=== PATIENT | female | born 1985 | race Caucasian/White ===

== ENCOUNTER 2016-09-18 19:15 | Emergency (ER) | payer SELFPAY ==
[~2016-09-18] VITALS: Ht 165.1 cm; Wt 59.1 kg
[~2016-09-18 19:15] MED LIST: CLEOCIN300 MG PO; Colace PO; Feosol PO; IBUPROFEN800 MG PO; Motrin PO; NO HOME MEDS; NOHOMEMEDS; PREVACID30 MG PO; Percocet 5/325,Endoc PO; Silvadene,SSD,Therma TP; Vibramycin, Doryx PO
[2016-09-18 19:36] VITALS: BP 132/95
== END 2016-09-18 21:27 ==
LOC: EME 19:15
DX: F10.129 Alcohol abuse with intoxication, unspecified (principal)
CPT/HCPCS: 99281; 99283

== ENCOUNTER 2016-11-11 01:38 | Observation (INO) | payer SELFPAY ==
[~2016-11-11] VITALS: Ht 165.1 cm; Wt 65.5 kg
[2016-11-11 02:18] LABS: HEMATOCRIT 40.5 % (36.0-46.0); MCH 30.2 PG (29.0-34.0); MCHC 33.1 G/DL (30.0-36.0); MCV 91.4 FL (83-99); MEAN PLAT.VOLUME 8.6 uM^3 (9.5-12.4); PLATELET COUNT 301 K/uL (156-360); RBC DIS.WIDTH-CV 13.2 % (11.8-14.6); RBC DIS.WIDTH-SD 45.1 % (39-53); RED BLOOD COUNT 4.43 M/uL (3.80-5.20); WHITE BLOOD COUNT 7.7 K/uL (4.1-10.2)
[2016-11-11 02:26] LABS: CHLORIDE 102 mEq/L (99-109); POTASSIUM 2.6 mEq/L (3.7-5.4); SODIUM 138 mEq/L (136-147)
[2016-11-11 02:28] LABS: GLUCOSE 125 mg/dL (70-99)
[2016-11-11 02:29] LABS: ANION GAP 11 MEQ/L (2-14)
[2016-11-11 02:30] LABS: TOTAL BILIRUBIN 0.5 mg/dL (0.0-1.0)
[2016-11-11 02:31] LABS: ALKALINE PHOSPHATASE 51 IU/L (3-129)
[2016-11-11 02:32] LABS: GFR ESTIMATE (CALCULATED) > 59 mL/min/
[2016-11-11 02:33] LABS: UREA NITROGEN (BUN) 16 mg/dL (9-23)
[2016-11-11 02:35] LABS: LIPASE 36 U/L (1.0-51.0)
[2016-11-11 02:38] LABS: TROP-I INTERPRETATION NEGATIVE; TROPONIN-I < 0.01 ng/mL (0.0-0.30)
[2016-11-11 02:44] LABS: D-DIMER ELISA 0.57 mg/L FEU (< 0.57)
[2016-11-11 02:48] LABS: SERUM ETHYL ALCOHOL 11 mg/dL
[2016-11-11 02:56] LABS: QUANTITATIVE HCG < 4.0 MIU/ML
[2016-11-11 03:07] LABS: AMPHETAMINE NEGATIVE (500 ng/mL); BARBITURATES NEGATIVE (200 ng/mL); BENZODIAZEPINES PRESUMPTIVE POSITIVE (150 ng/mL); COCAINE PRESUMPTIVE POSITIVE (150 ng/mL); INTERNAL CONTROLS VALID? YES; METHADONE NEGATIVE (200 ng/mL); METHAMPHETAMINE NEGATIVE (500 ng/mL); OPIATES (MORPHINE) NEGATIVE (100 ng/mL); OXYCODONE NEGATIVE (100 ng/mL); PHENCYCLIDINE NEGATIVE (25 ng/mL); PROPOXYPHENE NEGATIVE (300 ng/mL); THC CANNABINOIDS NEGATIVE (50 ng/mL); TRICYCLIC ANTIDEPRESSANTS NEGATIVE (300 ng/mL)
[2016-11-11 03:08] LABS: ADD MEDTOX COMMENT Y
[2016-11-11 03:45] LABS: BENZODIAZEPINES QUANT VALUE 0 NG/ML; BENZODIAZEPINES, URINE SCREEN Negative (200 ng/mL)
[2016-11-11 04:19] LABS: MAGNESIUM 1.7 mg/dL (1.3-2.7)
[2016-11-11 04:34] VITALS: BP 120/68
[2016-11-11 07:55] VITALS: BP 123/88
[2016-11-11 10:54] LABS: ANION GAP 6 MEQ/L (2-14); CHLORIDE 105 MEQ/L (99-109); MAGNESIUM 1.6 mg/dl (1.3-2.7); SAMPLE HEMOLYSIS CHECK 0; SAMPLE ICTERIC CHECK 0; SAMPLE LIPEMIA CHECK 0; SODIUM 135 MEQ/L (136-147)
[2016-11-11 10:59] LABS: POTASSIUM 3.9 MEQ/L (3.7-5.4)
[2016-11-11 11:00] LABS: GFR ESTIMATE (CALCULATED) > 59 mL/min/; HDL CHOLESTEROL 85 MG/DL (Desirable>=50); LDL CHOLESTEROL 62 mg/dL (Desirable<100); NON-HDL CHOLESTEROL 69 mg/dL (Desirable<160); TOTAL CHOLESTEROL 154 mg/dL (Desirable<200); TRIGLYCERIDES 37 MG/DL (Normal: <150); UREA NITROGEN (BUN) 11 mg/dL (9-23)
[2016-11-11 11:02] LABS: GLUCOSE 82 mg/dL (70-99)
[2016-11-11 11:03] LABS: TROP-I INTERPRETATION NEGATIVE; TROPONIN-I < 0.01 ng/mL (0.0-0.30)
[2016-11-11 12:05] VITALS: BP 110/64
[2016-11-11 15:33] VITALS: BP 101/58
[2016-11-11 15:59] LABS: TROP-I INTERPRETATION NEGATIVE; TROPONIN-I < 0.01 ng/mL (0.0-0.30)
[2016-11-11 20:06] VITALS: BP 105/72
== END 2016-11-11 23:26 | disposition home or self-care (01) ==
LOC: EME 01:38 → EDOF 03:21 → 5WEST 04:30
PROVIDERS: Emergency Medicine; Physician Assistant Medical
DX: R07.89 Other chest pain (principal); E87.6 Hypokalemia; R00.2 Palpitations; R06.00 Dyspnea, unspecified; F14.10 Cocaine abuse, uncomplicated; F10.120 Alcohol abuse with intoxication, uncomplicated; F15.10 Other stimulant abuse, uncomplicated; F11.21 Opioid dependence, in remission; F41.9 Anxiety disorder, unspecified; F32.9 Major depressive disorder, single episode, unspecified; Z86.19 Personal history of other infectious and parasitic diseases; R06.4 Hyperventilation; E83.42 Hypomagnesemia
CPT/HCPCS: 71020; 80048 91; 80053; 80061; 83690; 83735; 84484; 84702; 84999; 85027; 85379; 93005; 99281; 99285; G0378; G0480; J2060; J2405; J3411; J3475; J3480; J7030; S0028

== ENCOUNTER 2017-01-07 22:31 | Emergency (ER) | payer SELFPAY ==
[~2017-01-07] VITALS: Ht 165.1 cm; Wt 58.1 kg
[2017-01-07 23:52] LABS: INTERNAL CONTROL VALID? YES
[2017-01-07 23:53] LABS: ADD MIUA? YES; BILIRUBIN NEGATIVE; BLOOD LARGE; COLOR YELLOW ((YELLOW)); GLUCOSE (STRIP) NEGATIVE; KETONES NEGATIVE; LEUKOCYTES TRACE; NITRITE NEGATIVE; PROTEIN (STRIP) 30; SPECIFIC GRAVITY 1.019 (1.000-1.030); UROBILINOGEN 0.2 MG/DL (0.2-1.0)
[2017-01-08 00:30] LABS: EPITHELIAL CELLS 1+ /HPF; MUCUS RARE /LPF; RED BLOOD CELLS 30-40 /HPF (0-5)
[2017-01-08 00:31] LABS: AMORPHOUS PHOSPHATE CRYSTALS 1+; BACTERIA 1+ /HPF; CASTS NONE SEEN /LPF; CRYSTALS PRESENT; UCUL ADDED? NO
[2017-01-08 01:15] VITALS: BP 147/107
[2017-01-10 16:42] LABS: CHLAMYDIA TRACHOMATIS POSITIVE; NEISSERIA GONORRHOEAE NEGATIVE
== END 2017-01-08 01:29 | disposition home or self-care (01) ==
LOC: EME 22:31
PROVIDERS: Physician Assistant
DX: N93.8 Other specified abnormal uterine and vaginal bleeding (principal); F17.200 Nicotine dependence, unspecified, uncomplicated
CPT/HCPCS: 76856; 81003; 84703; 87210; 87480; 87491; 87510; 87591; 87660; 99281; 99284; J0696

== ENCOUNTER 2017-07-14 11:07 | Emergency (ER) | payer SELFPAY ==
[~2017-07-14] VITALS: Ht 165.1 cm; Wt 55.6 kg
[2017-07-14 12:35] LABS: BASOPHIL COUNT 0.1 K/uL (0-0.1); EOSINOPHIL (%) 0.4 % (0-5); HEMATOCRIT 40.7 % (36.0-46.0); IMMATURE GRANULOCYTE (%) 0.1 % (0.0-0.7); LYMPHOCYTE (%) 27.7 % (15-42); LYMPHOCYTE COUNT 1.9 K/uL (1.0-2.8); MCH 31.5 PG (29.0-34.0); MCHC 34.4 G/DL (30.0-36.0); MCV 91.7 FL (83-99); MONOCYTE (%) 9.2 % (3-12); MONOCYTE COUNT 0.6 K/uL (0-0.8); NEUTROPHIL (%) 61.6 % (45-76); NEUTROPHIL COUNT 4.2 K/uL (1.8-6.4); PLATELET COUNT 355 K/uL (156-360); RBC DIS.WIDTH-CV 12.4 % (11.8-14.6); RBC DIS.WIDTH-SD 41.6 % (39-53); RED BLOOD COUNT 4.44 M/uL (3.80-5.20); WHITE BLOOD COUNT 6.8 K/uL (4.1-10.2)
[2017-07-14 12:48] LABS: CHLORIDE 106 mEq/L (99-109); POTASSIUM 3.9 mEq/L (3.7-5.4); SODIUM 137 mEq/L (136-147)
[2017-07-14 12:50] LABS: GLUCOSE 80 mg/dL (70-99)
[2017-07-14 12:54] LABS: CREATININE 0.8 mg/dL (0.6-1.3); GFR ESTIMATE (CALCULATED) > 59 mL/min/
[2017-07-14 12:55] LABS: UREA NITROGEN (BUN) 18 mg/dL (9-23)
[2017-07-14 12:58] LABS: TROP-I INTERPRETATION NEGATIVE; TROPONIN-I 0.02 ng/mL (0.0-0.30)
[2017-07-14 13:01] LABS: PTT 31.4 SEC (25-37)
[2017-07-14 15:34] LABS: TROP-I INTERPRETATION NEGATIVE; TROPONIN-I < 0.01 ng/mL (0.0-0.30)
[2017-07-14 16:30] VITALS: BP 122/88
== END 2017-07-14 19:16 | disposition left against medical advice (07) ==
LOC: EME 11:07
PROVIDERS: Emergency Medicine
DX: R07.89 Other chest pain (principal); F14.10 Cocaine abuse, uncomplicated; B19.20 Unspecified viral hepatitis C without hepatic coma; J45.909 Unspecified asthma, uncomplicated; F41.9 Anxiety disorder, unspecified; F17.200 Nicotine dependence, unspecified, uncomplicated
CPT/HCPCS: 71045; 80048; 84484; 85025; 85610; 85730; 93005

== ENCOUNTER 2017-10-01 22:43 | Emergency (ER) | payer SELFPAY ==
[~2017-10-01] VITALS: Ht 165.1 cm; Wt 61.8 kg
[2017-10-01 23:00] VITALS: BP 115/73
[2017-10-01 23:51] LABS: HEMOGLOBIN 11.9 G/DL (11.9-15.5); MCV 94.1 FL (83-99); PLATELET COUNT 222 K/uL (156-360); RBC DIS.WIDTH-CV 12.3 % (11.8-14.6); RBC DIS.WIDTH-SD 42.5 % (39-53); RED BLOOD COUNT 3.72 M/uL (3.80-5.20); WHITE BLOOD COUNT 6.1 K/uL (4.1-10.2)
[2017-10-02 00:05] LABS: APPEARANCE CLOUDY ((CLEAR)); BILIRUBIN NEGATIVE; BLOOD NEGATIVE; COLOR YELLOW ((YELLOW)); GLUCOSE (STRIP) NEGATIVE; KETONES NEGATIVE; LEUKOCYTES MODERATE; NITRITE NEGATIVE; PROTEIN (STRIP) 30; SPECIFIC GRAVITY 1.023 (1.000-1.030); UROBILINOGEN 0.2 MG/DL (0.2-1.0)
[2017-10-02 00:15] LABS: ALBUMIN 3.5 g/dL (3.2-4.8); CHLORIDE 107 mEq/L (99-109); POTASSIUM 4.2 mEq/L (3.7-5.4); SODIUM 139 mEq/L (136-147)
[2017-10-02 00:17] LABS: GLUCOSE 64 mg/dL (70-99)
[2017-10-02 00:18] LABS: TOTAL PROTEIN 6.7 g/dL (6.4-8.3)
[2017-10-02 00:19] LABS: TOTAL BILIRUBIN 0.1 mg/dL (0.0-1.0)
[2017-10-02 00:21] LABS: BACTERIA 1+ /HPF; EPITHELIAL CELLS 3+ /HPF; MUCUS NONE SEEN /LPF; RED BLOOD CELLS 0-5 /HPF (0-5); UCUL ADDED? YES
[2017-10-02 00:21] LABS: ALKALINE PHOSPHATASE 38 IU/L (3-129); CREATININE 0.7 mg/dL (0.6-1.3); GFR ESTIMATE (CALCULATED) > 59 mL/min/
[2017-10-02 00:22] LABS: UREA NITROGEN (BUN) 10 mg/dL (9-23)
[2017-10-02 00:23] LABS: AST (GOT) 31 IU/L (2-34)
[2017-10-02 00:24] LABS: ALT (GPT) 29 IU/L (3-49); LIPASE 39 U/L (1.0-51.0)
[2017-10-02] MEDS ORDERED: ZOFRAN ODT4 MG PO (02:50)
[2017-10-02] MEDS ORDERED: KEFLEX500 MG PO (02:58)
== END 2017-10-02 03:47 | disposition home or self-care (01) ==
LOC: EME 22:43
DX: O23.41 Unspecified infection of urinary tract in pregnancy, first trimester (principal); F19.10 Other psychoactive substance abuse, uncomplicated; Z3A.11 11 weeks gestation of pregnancy; O98.411 Viral hepatitis complicating pregnancy, first trimester; B19.20 Unspecified viral hepatitis C without hepatic coma; O99.511 Diseases of the respiratory system complicating pregnancy, first trimester; J45.909 Unspecified asthma, uncomplicated; O99.341 Other mental disorders complicating pregnancy, first trimester; F41.9 Anxiety disorder, unspecified; O99.331 Smoking (tobacco) complicating pregnancy, first trimester; F17.200 Nicotine dependence, unspecified, uncomplicated
CPT/HCPCS: 76801; 80053; 81003; 83690; 84702; 85027; 87086; 99281; 99284

== ENCOUNTER 2018-01-31 18:35 | Emergency (ER) | payer OTHER ==
[~2018-01-31] VITALS: Ht 165.1 cm; Wt 69.4 kg
[~2018-01-31 18:35] MED LIST changes: +KEFLEX500 MG PO; +ZOFRAN ODT4 MG PO
[2018-01-31 20:51] VITALS: BP 125/75
== END 2018-01-31 20:52 | disposition home or self-care (01) ==
LOC: EME 18:35
DX: Z04.3 Encounter for examination and observation following other accident (principal); O99.322 Drug use complicating pregnancy, second trimester; F11.20 Opioid dependence, uncomplicated; O99.513 Diseases of the respiratory system complicating pregnancy, third trimester; J45.909 Unspecified asthma, uncomplicated; O99.343 Other mental disorders complicating pregnancy, third trimester; F41.9 Anxiety disorder, unspecified; O98.413 Viral hepatitis complicating pregnancy, third trimester; B19.20 Unspecified viral hepatitis C without hepatic coma; O99.333 Smoking (tobacco) complicating pregnancy, third trimester; F17.200 Nicotine dependence, unspecified, uncomplicated; R29.6 Repeated falls; Z3A.29 29 weeks gestation of pregnancy
CPT/HCPCS: 76805; 99281; 99284

== ENCOUNTER 2018-02-02 12:37 | Emergency (ER) | payer OTHER ==
[~2018-02-02] VITALS: Ht 165.1 cm; Wt 69.5 kg
[2018-02-02 14:59] VITALS: BP 126/81
== END 2018-02-02 15:01 | disposition home or self-care (01) ==
LOC: EME 12:37
DX: O99.323 Drug use complicating pregnancy, third trimester (principal); F11.20 Opioid dependence, uncomplicated; Z3A.28 28 weeks gestation of pregnancy
CPT/HCPCS: 99281; 99283